=== PATIENT | male | born 1940 | race Caucasian/White ===

== ENCOUNTER 2018-02-12 12:44 | Emergency (ER) | payer MEDICARE, OTHER ==
[~2018-02-12] VITALS: Ht 180.3 cm; Wt 119.7 kg
[~2018-02-12 12:44] MED LIST: ASPIR 8181 MG PO; BUSPIRONE HCL30 MG PO; CELEXA10 MG PO; CLONAZEPAM0.5 MG PO; DICYCLOMINE HCL20 MG PO; DOXAZOSIN MESYLA4 MG PO; ESIDRIX25 MG PO; GLIPIZIDE10 MG PO; METFORMIN HCL1000 MG PO; MIRTAZAPINE15 M1 PO; OMEPRAZOLE20 M1 PO; QUETIAPINE FUMA25 MG PO; TRAZODONE HCL50 MG PO; VITAMIN B-122500 MCG PO; ZESTRIL10 MG PO; ZOCOR20 MG PO
--- NOTE | 2018-02-12 14:36 | NUR ---
PAITENT AWAKE AND ALERT SITTING IN BED QUIETLY. RESP EVEN AND UNLABORED. SKIN WARM AND DRY. NO SIGNS OF ACUTE DISTRESS NOTED AT THIS TIME.
[2018-02-12 15:50] LABS: BASOPHILS % 0.5 % (0.0-1.0); EOSINOPHILS # (AUTO) 0.1 (0.0-0.4); EOSINOPHILS % 1.1 % (0.0-6.0); HEMATOCRIT 41.8 % (38.2-49.6); HEMOGLOBIN 12.4 g/dL (14.0-18.0); LYMPHOCYTES # (AUTO) 1.4 (1.0-3.2); LYMPHOCYTES % 19.2 % (18.0-39.1); MEAN CORPUSCULAR HEMOGLOBIN 23.4 pg (28-32); MEAN CORPUSCULAR HGB CONC 29.7 g/dL (31-35); MEAN CORPUSCULAR VOLUME 78.7 fL (81-99); MONOCYTES # (AUTO) 0.6 (0.2-0.8); NEUTROPHILS # (AUTO) 5.2 (2.1-6.9); NEUTROPHILS % 70.9 % (38.7-80.0); PLATELET COUNT 221 x10e3/uL (140-360); RED BLOOD COUNT 5.31 x10e6/uL (4.3-5.7); RED CELL DISTRIBUTION WIDTH 15.6 % (11.7-14.4)
[2018-02-12 15:53] LABS: INR 0.92; PROTHROMBIN TIME 13.2 seconds (11.9-14.5)
[2018-02-12 15:54] LABS: PARTIAL THROMBOPLASTIN TIME 28.1 seconds (23.8-35.5)
[2018-02-12 16:02] LABS: ALANINE AMINOTRANSFERASE 8 IU/L (0-55); ALBUMIN 3.7 g/dL (3.5-5.0); ALBUMIN/GLOBULIN RATIO 1.2 (0.8-2.0); ALKALINE PHOSPHATASE 75 IU/L (40-150); BLOOD UREA NITROGEN 14 mg/dL (7-26); BUN/CREATININE RATIO 17 (6-25); CALCIUM 9.3 mg/dL (8.4-10.2); CARBON DIOXIDE 27 mmol/L (22-29); CHLORIDE 106 mmol/L (98-107); CREATINE KINASE 108 IU/L (30-200); CREATININE, SERUM 0.81 mg/dL (0.72-1.25); EST GLOMERULAR FILTRATION RATE > 60 ML/MIN (60-); GLUCOSE 111 mg/dL (74-118); SODIUM 142 mmol/L (136-145)
[2018-02-12 16:32] LABS: CLARITY,URINE SL CLOUDY (CLEAR); COLOR,URINE YELLOW (YELLOW); LEUKOCYTE ESTERASE ,URINE NEGATIVE (NEGATIVE); NITRITE,URINE NEGATIVE (NEGATIVE); PROTEIN,URINE DIPSTICK NEGATIVE (NEGATIVE)
[2018-02-12 16:33] LABS: BILIRUBIN,URINE NEGATIVE (NEGATIVE); KETONES,URINE 1+ (NEGATIVE); URINE UROBILINOGEN 0.2 mg/dL (0.2 - 1)
[2018-02-12 16:46] LABS: BACTERIA,URINE FEW /HPF; MUCUS,URINE MODERATE (RARE)
--- NOTE | 2018-02-12 17:44 | Diagnostic Imaging Report ---
EXAM: CT Abdomen and Pelvis WITHOUT contrast INDICATION: ^Stone Protocol ^[id number] ^1620 ^Y COMPARISON: None. TECHNIQUE: Abdomen and pelvis were scanned utilizing a multidetector helical scanner from the lung base to the pubic symphysis without administration of IV contrast. Absence of intravenous contrast decreases sensitivity for detection of focal lesions and vascular pathology. Coronal and sagittal reformations were obtained. Routine protocol was performed. IV CONTRAST: None ORAL CONTRAST: Water COMPLICATIONS: None RADIATION DOSE: Total DLP: 897.34 mGy*cm Estimated effective dose: (DLP x 0.015 x size factor) mSv CTDIvol has been reviewed. It is below the limits set by the Radiation Protocol Committee (RPC). FINDINGS: LINES and TUBES: Crain catheter. LOWER THORAX: Mild dependent atelectasis. Right basilar atelectasis/scarring. Punctate nonspecific right upper lobe nodule (series 3, image 10). HEPATOBILIARY: Unenhanced liver is unremarkable. No biliary ductal dilation. GALLBLADDER: No radio-opaque stones or sludge. No wall thickening. SPLEEN: No splenomegaly. PANCREAS: No focal masses or ductal dilatation. ADRENALS: No adrenal nodules KIDNEYS/URETERS: No hydronephrosis. Limited for evaluation of renal parenchyma without intravenous contrast. Nonspecific bilateral mild perinephric fat stranding. No stones. GI TRACT: No abnormal distention, wall thickening, or evidence of bowel obstruction. Small hiatal hernia. Appendix is normal. PELVIC ORGANS/BLADDER: Bladder is decompressed by Crain catheter in place, limiting evaluation. Pelvic phleboliths. LYMPH NODES: No lymphadenopathy. VESSELS: Unremarkable. PERITONEUM / RETROPERITONEUM: No free air or fluid. BONES: Nondisplaced fracture of the posterior right 12th rib (series 3, image 82). SOFT TISSUES: Small fat-containing bilateral inguinal hernia. IMPRESSION: 1. No nephrolithiasis or evidence of obstructive urolithiasis. 2. Nondisplaced fracture of the posterior right 12th rib. Signed by: Dr. Carlos Alberto Ortega MD on 02/12/2018 5:40 PM
--- NOTE | 2018-02-12 18:50 | NUR ---
VERBAL REPORT GIVEN TO JOHNNIE RODRIGUEZ.
[2018-02-12 19:30] VITALS: BP 145/43
[2018-02-12] MEDS ORDERED: NORVASC5 MG PO (19:30)
[2018-02-12] MEDS ORDERED: ULTRAM 50MG50 MG PO (19:30)
--- NOTE | 2018-02-12 19:33 | NUR ---
attempted to call report to [facility]. no answer at this time.
--- NOTE | 2018-02-12 19:45 | NUR ---
valentin catheter dc'd s complications per md order. ambulance called for transport back [facility]. dc paperwork and rx provided to patient.
--- NOTE | 2018-02-12 22:33 | NUR ---
REPORT TO EMT. PAPERWORK C RX GIVEN TO EMT. PT TRANSPORTED BACK TO [facility] VIA AMBULANCE AT THIS TIME.
== END 2018-02-12 22:33 ==
LOC: ER 12:44
DX: R07.89 Other chest pain (principal); S22.31XA Fracture of one rib, right side, initial encounter for closed fracture; G31.01 Pick's disease; F02.80 Dementia in other diseases classified elsewhere, unspecified severity, without behavioral disturbance, psychotic disturbance, mood disturbance, and anxiety; I10 Essential (primary) hypertension
CPT/HCPCS: 36415; 51700; 74176; 80053; 81001; 82140; 82550; 82553; 83605; 83735; 83880; 84484; 85025; 85610; 85730; 87040; 87086; 93005; 99284